=== PATIENT | female | born 1980 | race Caucasian/White ===

== ENCOUNTER 2018-02-26 10:44 | Emergency (ER) | payer OTHER ==
[2018-02-26] MEDS: NAPROXEN 500 MG TABLET PO (11:51)
[2018-02-26] MEDS: HYDROcodone/APAP 5/325MG 1 TAB TABLET PO (11:51)
== END 2018-02-26 12:47 | disposition home or self-care (01) ==
LOC: ER 12:47
DX: M84.375A Stress fracture, left foot, initial encounter for fracture (principal); F12.10 Cannabis abuse, uncomplicated; X58.XXXA Exposure to other specified factors, initial encounter; Y93.89 Activity, other specified; Y99.8 Other external cause status; Y92.89 Other specified places as the place of occurrence of the external cause
CPT/HCPCS: 29515; 73630; 99284-25